=== PATIENT | female | born 1980 | race Caucasian/White ===

== ENCOUNTER → 2016-07-19 | Outpatient (CLI) | payer BC ==
--- NOTE | 2016-07-20 12:18 | CR ---
EXAMINATION: Single contrast upper GI HISTORY: Reflux COMPARISON: CT dated 06/29/2016 TECHNIQUE: Upright single contrast upper GI performed. FINDINGS: The patient swallowed barium without difficulty. The esophagus is normal in caliber withou t filling defect or stricture. There is a lap band in place paralleling the diaphragm. Contrast pass es easily through the stoma without delay. The remaining stomach appears grossly normal. The rugal f old pattern is normal. The duodenal bulb and sweep appear normal. IMPRESSION: 1. Lap band noted in good position. 2. No acute findings demonstrated.
== END ==
LOC: MW.DI 08:22
PROVIDERS: ATTEND Surgery
DX: K21.9 Gastro-esophageal reflux disease without esophagitis (principal)
CPT/HCPCS: 74240; 74240-26

== ENCOUNTER → 2016-08-17 | Outpatient (CLI) | payer BC ==
--- NOTE | 2016-08-17 16:14 | CR ---
EXAMINATION: Lumbar spine HISTORY: Low back pain COMPARISON: MRI dated 07/12/2016 TECHNIQUE: AP, lateral, flexion and extension images FINDINGS: The lumbar spinal alignment is normal. The vertebral body heights and disc spaces are bernardino sly maintained. Bone mineralization is normal. Alignment and range of motion is grossly preserved wi th flexion and extension. The SI joints are symmetric. There is a lap band projecting over the abdom en. IMPRESSION: Grossly unremarkable lumbar spine.
== END ==
LOC: MW.DI 12:53
PROVIDERS: ATTEND Neurological Surgery
DX: M54.5 Low back pain (principal)
CPT/HCPCS: 72110; 72110-26

== ENCOUNTER → 2016-09-17 | Outpatient (CLI) | payer BC ==
[2016-09-17 10:54] LABS: CHLORIDE,CL 107 mmol/L (98-110); SODIUM,NA 140 mmol/L (136-146)
== END ==
LOC: MW.CHFP 10:14
PROVIDERS: ATTEND Emergency Medicine
DX: Z01.818 Encounter for other preprocedural examination (principal)
CPT/HCPCS: 36415; 80053; 82652; 85025

== ENCOUNTER 2022-07-08 13:18 | Emergency (ER) | payer BC | END 2022-07-08 16:04 | disposition home or self-care (01) | LOC: MW.ED 13:18 | DX: M79.81 Nontraumatic hematoma of soft tissue (principal); Z72.0 Tobacco use; Z88.6 Allergy status to analgesic agent; Z88.8 Allergy status to other drugs, medicaments and biological substances; Z88.1 Allergy status to other antibiotic agents | CPT/HCPCS: 93971-26-LT; 93971-LT; 99283 ==

== ENCOUNTER 2023-02-10 10:49 | Emergency (ER) | payer BC ==
[2023-02-10] MEDS ORDERED: Sodium Chloride 0.9% 10 ML Syringe FLUSH PRN (11:02)
[2023-02-10] MEDS ORDERED: Sodium Chloride 0.9% 2.5 ML Syringe FLUSH PRN (11:02)
[2023-02-10] MEDS ORDERED: Sodium Chloride 0.9% 1,000 ML IV STA (11:42)
[2023-02-10] MEDS: Ketorolac 30 MG/ML SDV IVPUSH STA ×2 (11:51→13:19)
[2023-02-10 11:52] LABS: BASOPHILS PERCENT AUTO 0.4 % (0.0-1.5); EOSINOPHILS PERCENT AUTO 0.4 % (0.0-7.0); HEMATOCRIT 43.4 % (36.0-46.0); HEMOGLOBIN 14.6 g/dL (12.0-16.0); LYMPHOCYTES ABSOLUTE AUTO 1.2 K/uL (0.6-2.4); LYMPHOCYTES PERCENT AUTO 12.7 % (16.0-40.0); MEAN CORPUSCULAR HEMOGLOBIN 31.5 pg (27.0-32.0); MEAN CORPUSCULAR HGB CONC 33.6 g/dL (31.0-37.0); MEAN CORPUSCULAR VOLUME 93.5 fL (80.0-98.0); MONOCYTES ABSOLUTE AUTO 0.6 K/uL (0.0-0.8); MONOCYTES PERCENT AUTO 6.6 % (0.0-15.0); NEUTROPHILS ABSOLUTE AUTO 7.4 K/uL (1.4-5.7); NEUTROPHILS PERCENT AUTO 79.9 % (48.0-80.0); NRBC ABSOLUTE 0 K/uL; PLATELET COUNT,PLT 270 K/uL (150-400); RED BLOOD CELL COUNT 4.64 M/uL (4.30-5.90); WHITE BLOOD CELL COUNT,WBC 9.31 K/uL (4.0-11.0)
[2023-02-10 12:24] LABS: A/G RATIO 0.9 (0.9-1.6); ALBUMIN 3.8 g/dL (3.4-5.0); BILIRUBIN TOTAL 0.4 mg/dL (0.2-1.0); CALCIUM 8.4 mg/dL (8.5-10.1); CARBON DIOXIDE,CO2 24.6 mmol/L (21.0-32.0); EST CRCL DRUG DOSING (CG) 71.27 mL/min; POTASSIUM,K 3.8 mmol/L (3.5-5.1); PROTEIN TOTAL,TP 7.8 g/dL (6.4-8.2)
[2023-02-10 12:35] LABS: CANDIDA DNA PROBE NEGATIVE (NEGATIVE); GARDNERELLA DNA PROBE POSITIVE (NEGATIVE); TRICHOMONAS DNA PROBE NEGATIVE (NEGATIVE)
[2023-02-10] MEDS ORDERED: Iopamidol 755 MG/ML 500 ML Multipack Bottle IVPUSH STA (12:52)
== END 2023-02-10 14:37 | disposition home or self-care (01) ==
LOC: MW.ED 10:49
DX: N76.0 Acute vaginitis (principal); Z30.431 Encounter for routine checking of intrauterine contraceptive device; K57.90 Diverticulosis of intestine, part unspecified, without perforation or abscess without bleeding; Z88.1 Allergy status to other antibiotic agents; Z88.8 Allergy status to other drugs, medicaments and biological substances
CPT/HCPCS: 36415; 74177; 76830; 80053; 81003; 83690; 84703; 85025; 87480; 87510; 87660; 96361; 96374; 99284; J1885; J3490; J7030; Q9967

== ENCOUNTER 2023-03-14 09:26 | Day surgery (SDC) | payer BC ==
[~2023-03-14 09:26] MED LIST: Lactated Ringers 1,000 ML IV SCH
[2023-03-14] MEDS ORDERED: propofoL 50 ML ONE (10:51)
[2023-03-14] MEDS ORDERED: fentaNYL 100 MCG/2 ML SDV ONE ×2 (11:11→11:18)
[2023-03-14] MEDS ORDERED: Glycopyrrolate 0.2 MG/ML SDV ONE ×2 (11:13→11:16)
[2023-03-14] MEDS ORDERED: Propofol 200 MG/20 ML SDV ONE (11:22)
[2023-03-14] MEDS ORDERED: Lactated Ringers 1,000 ML IV SCH (11:45)
== END 2023-03-14 12:10 | disposition home or self-care (01) ==
LOC: MW.SDS 09:26
PROVIDERS: ATTEND Surgery
DX: K57.30 Diverticulosis of large intestine without perforation or abscess without bleeding (principal); F41.9 Anxiety disorder, unspecified; K21.9 Gastro-esophageal reflux disease without esophagitis; E66.9 Obesity, unspecified; F17.290 Nicotine dependence, other tobacco product, uncomplicated; Z88.1 Allergy status to other antibiotic agents; Z98.84 Bariatric surgery status; Z79.899 Other long term (current) drug therapy; Z80.0 Family history of malignant neoplasm of digestive organs; Z78.9 Other specified health status; Z68.27 Body mass index [BMI] 27.0-27.9, adult; Z88.8 Allergy status to other drugs, medicaments and biological substances
CPT/HCPCS: 45378; J2704; J3010; J3490; J7120

== ENCOUNTER 2023-07-08 20:04 | Emergency (ER) | payer BC ==
[2023-07-08 20:50] LABS: BASOPHILS ABSOLUTE AUTO 0.09 K/uL (0.00-0.20); BASOPHILS PERCENT AUTO 0.9 % (0.0-1.0); EOSINOPHILS ABSOLUTE AUTO 0.29 K/uL (0.00-0.45); HEMATOCRIT 42.4 % (37.0-47.0); HEMOGLOBIN 14.4 g/dL (12.0-16.0); IMMATURE GRAN ABSOLUTE AUTO 0.01 K/uL (0.00-0.05); IMMATURE GRAN PERCENT AUTO 0.1 % (0.0-0.4); LYMPHOCYTES ABSOLUTE AUTO 3.05 K/uL (1.00-4.80); LYMPHOCYTES PERCENT AUTO 31.7 % (24.0-44.0); MEAN CORPUSCULAR HEMOGLOBIN 31.9 pg (28.0-32.0); MEAN CORPUSCULAR VOLUME 93.8 fL (83.0-99.0); MEAN PLATELET VOLUME 9.1 fL (9.4-12.3); MONOCYTES ABSOLUTE AUTO 0.95 K/uL (0.00-0.80); MONOCYTES PERCENT AUTO 9.9 % (0.0-8.0); NEUTROPHILS ABSOLUTE AUTO 5.23 K/uL (1.80-7.70); NEUTROPHILS PERCENT AUTO 54.4 % (41.0-71.0); PLATELET COUNT,PLT 251 K/uL (150-400); RED BLOOD CELL COUNT 4.52 M/uL (4.10-5.30); WHITE BLOOD CELL COUNT,WBC 9.62 K/uL (3.9-11.3)
[2023-07-08 21:14] LABS: ALANINE AMINOTRANSFERASE,ALT 19 IU/L (14-63); ALBUMIN 3.7 g/dL (3.4-5.0); ALKALINE PHOSPHATASE 87 U/L (46-116); ASPARTATE AMNIOTRANSFERASE,AST 13 IU/L (15-37); BILIRUBIN TOTAL 0.3 mg/dL (0.2-1.0); BLOOD UREA NITROGEN,BUN 7 mg/dL (7.0-18.0); CALCIUM 8.6 mg/dL (8.5-10.1); CARBON DIOXIDE,CO2 25.7 mmol/L (21.0-32.0); CHLORIDE,CL 105 mmol/L (98-107); CREATININE 0.9 mg/dL (0.6-1.0); EST CRCL DRUG DOSING (CG) 79.19 mL/min; GLUCOSE RANDOM 98 mg/dL (74-106); PROTEIN TOTAL,TP 7.3 g/dL (6.4-8.2); SODIUM,NA 140 mmol/L (136-145)
[2023-07-08 21:18] LABS: ESTIMATED GFR 82 mL/min (>60)
[2023-07-08] MEDS: Lidocaine 4% 1 each Patch TOP PRN (21:31)
== END 2023-07-08 22:19 | disposition home or self-care (01) ==
LOC: MW.ED 20:04
DX: R07.9 Chest pain, unspecified (principal); K21.9 Gastro-esophageal reflux disease without esophagitis; Z86.16 Personal history of COVID-19; Z91.048 Other nonmedicinal substance allergy status; Z88.1 Allergy status to other antibiotic agents; Z88.5 Allergy status to narcotic agent; Z88.6 Allergy status to analgesic agent; Z79.899 Other long term (current) drug therapy
CPT/HCPCS: 36415; 71046; 80053; 84484; 85025; 85379; 93005; 99285; A9270